=== PATIENT | female | born 1965 | race Caucasian/White ===

== ENCOUNTER → 2024-01-08 10:43 | Outpatient (REF) | payer MEDICARE, OTHER, SELFPAY | LOC: HWWDC 10:43 | PROVIDERS: ATTENDING PHYSICIAN Obstetrics & Gynecology; FAMILY PHYSICIAN Family Medicine | DX: Z12.31 Encounter for screening mammogram for malignant neoplasm of breast (principal) | CPT/HCPCS: 77063; 77067 ==

== ENCOUNTER 2024-02-06 13:48 | Emergency (ER) | payer MEDICARE, OTHER, SELFPAY ==
[2024-02-06 13:49] VITALS: BMI 30.2
--- NOTE | 2024-02-06 13:58 | ED.MUSCINJ ---
HPI-Injury
General
Chief Complaint: Fall
Source: patient
Exam Limitations: none
Time Seen by Provider: 02/06/24 13:50
Nursing documentation reviewed up to this point in time: agreed with
History of Present Illness-Injury
Is this injury a work related problem?: No
Is pt an associate of [facility]/[place]?: No
Initial Injury comments:
Patient to ED from [facility]. States she fell yesterdray, does not recall specifics. Unsure if she hit her head. Complains of headache, neck pain, left arm numbness, bilateral knee pain. Brought to ED by EMS for eval. Incident occurred
yesterday.
Past History
Past History
ED Past Medical History: GERD, HTN and Psychiatric (Bipolar disease)
Social History
Tobacco: Vaping
Alcohol: None
Drug: None
Review of Systems
Review of Systems
Allergies reviewed?: Yes
All Other Systems: ROS reviewed and negative except as documented in HPI and ROS
Constitutional: Reports no symptoms
EENT: Reports no symptoms
Respiratory: Reports no symptoms
Cardiac: Reports no symptoms
ABD/GI: Reports no symptoms
: Reports no symptoms
Musculoskeletal: Reports joint pain (bilateral ant knees) and neck pain
Skin: Reports no symptoms
Neurological: Reports weakness
Psychiatric: Reports no symptoms
Musculoskeletal Injury Exam
Musculoskeletal Injury Exam
Bilateral Anterior Knee:
Pain with Movement?: Mild
Tender to palpation?: Mild
Soft tissue swelling?: None
External deformity and angulation?: None
Joint effusion?: None
Contusion?: Mild
Hematoma-local bleeding into tissue?: None
Strain- Sprain- Tear (Connective tissue injury)?: None
Crepitus with movement?: No
Joint instability?: No
Malalignment/deformity?: No
Range of motion: Full
Distal skin color and temperature: normal-warm & good color
Capillary Refill: normal
Normal distal neurovascular exam?: Yes
Bilateral Posterior Neck:
Pain with Movement?: Mild
Tender to palpation?: Mild
Soft tissue swelling?: None
External deformity and angulation?: None
Joint effusion?: None
Contusion?: None
Hematoma-local bleeding into tissue?: None
Strain- Sprain- Tear (Connective tissue injury)?: Mild
Crepitus with movement?: No
Joint instability?: No
Malalignment/deformity?: No
Range of motion: Full
Distal skin color and temperature: normal-warm & good color
Normal distal neurovascular exam?: Yes
Phy Exam
General Physical Exam
General Presentation: well appearing and no apparent distress
General age: appears stated age
General Skin: warm and dry
General Habitus: normal
Cardiovascular Exam
Cardiovascular Exam: regular rate/rhythm and no edema
Gastrointestinal Exam
Gastrointestinal Exam: non tender and soft
Neurological Exam
Neurological Exam: alert, oriented x3, CN II-XII intact, no motor deficits, no sensory deficits and speech normal
Musculoskeletal Exam
Musculoskeletal Exam: full ROM, neuro vasc intact and other (No hip pain. Full ROM)
Skin Exam
Skin Exam: normal color, warm/dry and no rash
Psychiatric Exam
Psychiatric Exam: normal mood/affect
Injury Course
Orders/Labs/Results
Orders:
Orders
02/06/24 13:52
EKG [Electrocardiogram (*1)] Urgent
Reason for Study: Vertigo / Dizzy
EKG- Treatment ONCE
02/06/24 13:53
CBC/With Diff [Complete Blood Count/With Diff] Urgent
CMP [Comprehensive Metabolic Panel] Urgent
02/06/24 13:56
CT Head W/o Iv Contrast Urgent
Comment:
Reason For Exam: fall
Cervical Spine wo Contrast CT [CT Cervical Spine W/o Iv Contr] Urgent
Comment:
Reason For Exam: fall, left arm numbness
Knee, Left 4 or More Views [CR Knee - Left 4 Or More View*] Urgent
Comment:
Reason For Exam: fall
Knee, Right 4 or More Views [CR Knee- Right 4 Or More View*] Urgent
Comment:
Reason For Exam: fall
02/06/24 13:57
Hip, Left 2-3 Views [CR Hip - LT w/wo Pel 2-3 Vw*] Urgent
Comment:
Reason For Exam: fall
Include a pelvis x-ray?: Yes
02/06/24 15:40
Acetaminophen [Tylenol] 650 mg .ROUTE .STK-MED ONE
02/06/24 15:46
Acetaminophen [Tylenol] 650 mg PO NOW STA
Abnormal Lab Results
02/06/24
13:53
WBC 4.1 L 10^3/uL
(4.8-10.8)
RBC 4.19 L 10^6/uL
(4.20-5.40)
Monocytes % 13.2 H %
(1.7-9.3)
Sodium 134 L mmol/L
(135-145)
AST 52 H U/L
(14-36)
02/06/24 13:53
02/06/24 13:53
*Radiology
Radiology exam reviewed: radiology read reviewed
*Pulse Oximetry
Patient hypoxic: no
*Critical Care Note
Total Time (30-74mins, 75-104mins- exclusive of procedures): Not Applicable
ED Attending Note
-
Portions of this chart may have been created with voice recognition software.� Occasional wrong word or��sound alike� substitutions may have occurred due to the inherent limitations of voice recognition software.
Discharge Plan
Departure
Patient Disposition: Home (Routine Discharge)
Date of Disposition: 02/06/24
Time of Disposition: 15:50
Patient with high blood pressure during this ER visit?: No
Condition: Good
Covid-19: Not Applicable
Discharge Problem:
Contusion of multiple sites, Fall
Instructions: Contusion (DC), Preventing falls in adults, Using Cold for Pain
Prescriptions:
No Action
medroxyprogesterone 2.5 MG tablet
2.5 mg PO HS
lisinopril 20 MG tablet
20 mg PO DAILY
omeprazole 20 MG capsule,delayed release(DR/EC)
20 mg PO BID
fluticasone propionate 1 SPRAY spray,suspension
1 spray intranasal DAILY PRN (Reason: allergies)
metformin 500 MG tablet
500 mg PO DAILY
clonidine HCl 0.1 MG tablet
0.1 mg PO BID
lamotrigine [Lamictal] 200 MG tablet
200 mg PO DAILY
albuterol sulfate 1 PUFF HFA aerosol inhaler
1 puff inhalation R Q4HPRN PRN (Reason: sob)
duloxetine 30 MG capsule,delayed release(DR/EC)
30 mg PO DAILY
Patient Comments:
11/26/2020: Take w/ 60mg = 90mg
duloxetine 60 MG capsule,delayed release(DR/EC)
60 mg PO DAILY
Patient Comments:
11/26/2020: Take w/ 30mg = 90mg
budesonide-formoterol [Symbicort] 1 PUFF HFA aerosol inhaler
2 puff inhalation R DAILY
atorvastatin 20 MG tablet
20 mg PO QPM Qty: 30 0RF
gabapentin 100 MG capsule
200 mg PO BID Qty: 60 0RF
cariprazine [Vraylar] 1.5 MG capsule
1.5 mg PO HS Qty: 30 0RF
clonazepam 1 MG tablet
1 mg PO BIDPRN PRN (Reason: anxiety) 0RF
Referrals:
UNKNOWN - PT DOES,NOT KNOW [Family Provider] -
Activity Restrictions/Additional Instructions:
Follow up with your family doctor.
Interventions
Interventions:
*Risk Screen - Suicide Last Done: 02/06/24 13:49
*General Assessment Last Done: 02/06/24 13:49
*Neglect/Abuse Screening Last Done: 02/06/24 13:49
Discharge Date and Time
Print Language: SYRIAN
[2024-02-06 14:01] LABS: % Basophils 1.2 % (0-2); % Eosinophils 3.9 % (0-6); % Immature Granulocytes 0.2 % (0-0.5); % Lymphocytes 30.2 % (20.5-51.1); % Monocytes 13.2 % (1.7-9.3); % Neutrophils 51.3 % (42.2-75.2); Absolute Basophils 0.1 10^3/uL (0-0.2); Absolute Eosinophils 0.2 10^3/uL (0-0.7); Absolute Lymphocytes 1.2 10^3/uL (1.2-3.4); Absolute Monocytes 0.5 10^3/uL (0.1-0.6); Absolute Neutrophils 2.1 10^3/uL (1.4-6.5); Hematocrit 38.2 % (37.0-47.0); Mean Corpuscular Volume 91.2 fL (81.0-99.0); Mean Platelet Volume 9.7 fL (7.4-10.4); Nucleated Red Blood Cells % 0 %; Platelet Count 263 10^3/uL (130-400); Red Blood Cell Count 4.19 10^6/uL (4.20-5.40); Red Cell Dist. Width 12.5 % (11.5-14.5); White Blood Cell Count 4.1 10^3/uL (4.8-10.8)
[2024-02-06 14:19] LABS: ALT (SGPT) 20 U/L (0-35); AST (SGOT) 52 U/L (14-36); Albumin 4.3 g/dl (3.5-5.0); Alkaline Phosphatase 68 U/L (38-126); Blood Urea Nitrogen 15 mg/dl (7-17); Calcium 9.9 mg/dl (8.4-10.2); Carbon Dioxide 28 mmol/L (22-30); Chloride 98 mmol/L (98-107); Estimated Creatinine Clearance 74 ml/min; Glucose 88 mg/dl (70-99); Potassium 4.5 mmol/L (3.5-5.1); Sodium 134 mmol/L (135-145); Total Bilirubin 0.5 mg/dl (0.2-1.3); Total Protein 6.6 g/dl (6.3-8.2); eGFR > 60.00
[2024-02-06] MEDS: TYLENOL 650 MG PO (15:47)
== END 2024-02-06 16:22 | disposition home or self-care (01) ==
LOC: EMR 13:48
PROVIDERS: Nurse Practitioner; EMERGENCY PHYSICIAN Emergency Medicine
DX: S80.02XA Contusion of left knee, initial encounter (principal); S80.01XA Contusion of right knee, initial encounter; S13.9XXA Sprain of joints and ligaments of unspecified parts of neck, initial encounter; R20.0 Anesthesia of skin; R51.9 Headache, unspecified; M54.9 Dorsalgia, unspecified; R53.1 Weakness; W19.XXXA Unspecified fall, initial encounter; F31.9 Bipolar disorder, unspecified; I10 Essential (primary) hypertension; K21.9 Gastro-esophageal reflux disease without esophagitis; E11.9 Type 2 diabetes mellitus without complications; F32.A Depression, unspecified; F17.290 Nicotine dependence, other tobacco product, uncomplicated; Z88.8 Allergy status to other drugs, medicaments and biological substances; Z91.048 Other nonmedicinal substance allergy status
CPT/HCPCS: 99285; 70450; 72125; 73502; 73564; 80053; 85025; 93005

== ENCOUNTER → 2024-03-11 11:28 | Outpatient (REF) | payer MEDICARE, OTHER, SELFPAY | LOC: HWRAD 11:28 | PROVIDERS: ATTENDING PHYSICIAN Internal Medicine Critical Care Medicine; FAMILY PHYSICIAN Family Medicine | DX: Z87.891 Personal history of nicotine dependence (principal) | CPT/HCPCS: 71271 ==

== ENCOUNTER 2024-05-08 10:03 | Emergency (ER) | payer MEDICARE, OTHER, SELFPAY ==
[2024-05-08 10:17] VITALS: BP 100/63
[2024-05-08 10:56] LABS: % Basophils 0.4 % (0-2); % Eosinophils 2.4 % (0-6); % Immature Granulocytes 0.2 % (0-0.5); % Lymphocytes 31.8 % (20.5-51.1); % Monocytes 9.5 % (1.7-9.3); % Neutrophils 55.7 % (42.2-75.2); Absolute Eosinophils 0.1 10^3/uL (0-0.7); Absolute Lymphocytes 1.6 10^3/uL (1.2-3.4); Absolute Monocytes 0.5 10^3/uL (0.1-0.6); Absolute Neutrophils 2.8 10^3/uL (1.4-6.5); Hematocrit 43.3 % (37.0-47.0); Hemoglobin 14.3 g/dL (12.0-16.0); Mean Corpuscular Volume 93.9 fL (81.0-99.0); Mean Platelet Volume 9.7 fL (7.4-10.4); Nucleated Red Blood Cells % 0 %; Platelet Count 317 10^3/uL (130-400); Red Blood Cell Count 4.61 10^6/uL (4.20-5.40); Red Cell Dist. Width 12.7 % (11.5-14.5); White Blood Cell Count 5.1 10^3/uL (4.8-10.8)
--- NOTE | 2024-05-08 11:06 | ED.GENMED ---
History of Present Illness
<PAT Pruett Last Filed: 05/08/24 16:57>
General
Chief Complaint: Abdominal Symptoms
Source: patient and records
Exam Limitations: none
Time Seen by Provider: 05/08/24 11:05
Nursing documentation reviewed up to this point in time: agreed with
History of Present Illness
History of Present Illness:
58-year-old female with past medical history of GERD, diabetes on metformin, hypertension, anxiety presents emergency department today with right upper quadrant abdominal pain for the past few weeks. Patient reports that she has had this problem
ongoing recently and states that the pain comes and goes but noted that the past few days, the pain has become more severe and stabbing in quality. Patient states that the pain is most severe after meals. She reports that the pain is worse with
movement. She also reports that she is not eating much due to the pain and notes nausea as well but no vomiting. She denies any constipation or diarrhea. She denies any history of abdominal surgeries. She denies any recent travel. Her primary
doctor ordered an ultrasound outpatient but she states that the pain became so uncomfortable that she reported to the emergency department. Patient denies any radiation of the pain to the back. Patient denies shortness of breath. Patient denies
dysuria or hematuria. Patient states that the pain relieves most when lying supine.
Past History
<PAT Pruett Last Filed: 05/08/24 16:57>
Past History
ED Past Medical History: GERD, HTN and Psychiatric (Bipolar disease)
Social History
Tobacco: Vaping
Alcohol: None
Drug: None
Review of Systems
<PAT Pruett Last Filed: 05/08/24 16:57>
Review of Systems
All Other Systems: ROS reviewed and negative except as documented in HPI and ROS
Phy Exam
<PAT Pruett Last Filed: 05/08/24 16:57>
Physical Exam
Physical Exam:
General: Patient is well appearing and in no acute distress; non-toxic
Skin: Warm and dry, no rashes or lesions
Head: Normocephalic, atraumatic
Eyes: Sclera non-icteric. EOMs intact. PERRLA.
Cardiac: Regular rate and rhythm, no murmurs
Pulm: Normal respiratory effort, no wheezes, rales, rhonchi
Abdomen: Right upper quadrant tenderness palpation with no guarding, no rebound tenderness.
Neuro: CN II-XII intact, no focal neurologic deficits.
Psychiatric: Appropriate mood and affect.
Course
<Ashley Duran PA-C - Last Filed: 05/08/24 16:57>
Orders/Labs/Results
Orders:
Orders
05/08/24 10:40
Complete Blood Count/With Diff Urgent
Comprehensive Metabolic Panel Urgent
Lipase Urgent
05/08/24 11:21
Add On- LAB Urgent
Tests Added?: lipase
IV Insert/Care/Rem.- Treatment PRN
Ketorolac [Toradol] 15 mg IV NOW STA
Ondansetron Injectable [Zofran] 4 mg IV NOW STA
US Abdomen Complete/Upper Urgent
Reason For Exam: right upper quadrant pain
05/08/24 11:25
0.9% Sodium Chloride 1000 ml [Nss] 1,000 ml IV BOLUS
05/08/24 13:47
CT Abd/pelvis W Iv Cont Urgent
Comment:
Reason For Exam: diffuse epigastrin pain
05/08/24 14:25
0.9% Sodium Chloride 500 ml [Nss] 500 ml IV BOLUS
05/08/24 15:24
Orthostatic VS- Treatment ONCE
Abnormal Lab Results
05/08/24
10:40
Monocytes % 9.5 H %
(1.7-9.3)
Glucose 112 H mg/dl
(70-99)
05/08/24 10:40
05/08/24 10:40
Vital Signs
Initial and Last Documented VS:
Initial Vital Signs
Temp Pulse Resp BP Pulse Ox
98.2 F 99 16 100/63 98
05/08/24 10:17 05/08/24 10:17 05/08/24 10:17 05/08/24 10:17 05/08/24 10:17
Last Documented Vital Signs
Temp Pulse Resp BP Pulse Ox
97.4 F 85 16 93/55 98
05/08/24 13:03 05/08/24 13:15 05/08/24 13:03 05/08/24 13:15 05/08/24 10:17
Daryalt;Chun Henderson, - Last Filed: 05/08/24 13:52>
Orders/Labs/Results
Orders:
Orders
05/08/24 10:40
Complete Blood Count/With Diff Urgent
Comprehensive Metabolic Panel Urgent
Lipase Urgent
05/08/24 11:21
Add On- LAB Urgent
Tests Added?: lipase
IV Insert/Care/Rem.- Treatment PRN
Ketorolac [Toradol] 15 mg IV NOW STA
Ondansetron Injectable [Zofran] 4 mg IV NOW STA
US Abdomen Complete/Upper Urgent
Reason For Exam: right upper quadrant pain
05/08/24 11:25
0.9% Sodium Chloride 1000 ml [Nss] 1,000 ml IV BOLUS
05/08/24 13:47
CT Abd/pelvis W Iv Cont Urgent
Comment:
Reason For Exam: diffuse epigastrin pain
05/08/24 14:25
0.9% Sodium Chloride 500 ml [Nss] 500 ml IV BOLUS
05/08/24 15:24
Orthostatic VS- Treatment ONCE
Abnormal Lab Results
05/08/24
10:40
Monocytes % 9.5 H %
(1.7-9.3)
Glucose 112 H mg/dl
(70-99)
05/08/24 10:40
05/08/24 10:40
Vital Signs
Initial and Last Documented VS:
Initial Vital Signs
Temp Pulse Resp BP Pulse Ox
98.2 F 99 16 100/63 98
05/08/24 10:17 05/08/24 10:17 05/08/24 10:17 05/08/24 10:17 05/08/24 10:17
Last Documented Vital Signs
Temp Pulse Resp BP Pulse Ox
97.4 F 85 16 93/55 98
05/08/24 13:03 05/08/24 13:15 05/08/24 13:03 05/08/24 13:15 05/08/24 10:17
Daryalt;Ashley Duran PA-C - Last Filed: 05/08/24 16:57>
MDM/Problems Addressed
Differential Diagnosis Includes:
Differentials include cholecystitis, biliary colic, pancreatitis, gastroenteritis
MDM/Problems Addressed:
58-year-old female with past medical history of hypertension, GERD, anxiety, bipolar disorder, diabetes presents emergency department today with concerns of on and off abdominal pain for the past few weeks. Patient had an ultrasound of her abdomen
scheduled as an outpatient however patient states that today she had episode of more severe pain which caused her to present to the emergency department today. On physical exam, she is well-appearing, her tenderness he was a more localized to the
right upper quadrant. She feels as though her pain is worse after eating. Her CBC and CMP are unremarkable. Patient is afebrile. Her ultrasound of the abdomen is negative for gallstones, gallbladder wall thickening, or pericholecystic fluid.
Patient's pain did relieve completely with Toradol. Considering patient's persistent pain for the past few months, and severe episode of pain she had earlier, she was sent for CAT scan which demonstrated a large fibroid on the right side of the
uterus as well as moderate circumferential thickening of the distal esophagus. Discussed these findings with patient. Patient knows about her fibroid, I doubt this is responsible for her symptoms today. Considering patient has a history of GERD,
discussed how these findings might represent esophagitis. I discussed that an upper endoscopy would be a good next step in evaluation of her symptoms. Patient states that she will continue to take pantoprazole and will have her sister call her
oven worker to schedule an appointment to get endoscopy. Patient stable for discharge at this point for outpatient follow-up. Discussed return precautions.
Chronic conditions affecting care:
HTN. GERD, diabetes, anxiety, depression
<Ashley Duran PA-C - Last Filed: 05/08/24 16:57>
*Pulse Oximetry
Patient hypoxic: no
*Critical Care Note
Total Time (30-74mins, 75-104mins- exclusive of procedures): Not Applicable
Data Reviewed
Review of Other/Old Records Reveals: Records (reviewed ER physician documentation from 02/06/24) and Discharge Summary (Reviewed discharge summary from 11/29/2020, patient was seen for altered mental status, patient found head acute kidney injury and
malaise of unknown etiology)
Source: patient and records
Prescriptions/Medications Considered But Not Given:
n/a
Further Testing Considered But Not Given:
n/a
<Ashley Duran PA-C - Last Filed: 05/08/24 16:57>
Update Note
Update Note:
1:10 pm-- BP noted to be 82/55, patient received around 200 ml of fluids, will continue to transfuse fluids and reassess. Patient does not meet SIRS criteria at this time. Patient notes her pain significantly improved with Toradol.
Prior to discharge, vitals rechecked, patient's blood pressure sitting 135/95 and standing 121/89 prior to discharge.
ED Attending Note
<Ashley Duran PA-C - Last Filed: 05/08/24 16:57>
-
Portions of this chart may have been created with voice recognition software.� Occasional wrong word or��sound alike� substitutions may have occurred due to the inherent limitations of voice recognition software.
<Chun JeffreyEddi Henderson DO - Last Filed: 05/08/24 13:52>
ED Attending Note
Patient seen and examined by attending physician: Yes
I performed a history and physical exam of patient and discussed management with resident, I reviewed resident's note and agree with documented findings and plan of care.: Yes
ED Attending Note:
58-year-old female presents complaining of abdominal pain. Patient is complaining of pain in the upper abdomen. Pain comes and goes in waves. Has been occurring for the past several weeks. Pain seems to occur after eating meals. No fever. No
urinary symptoms.
General: Awake, Alert, Oriented X3. No acute distress.
Vitals: unremarkable
Head: Atraumatic
Eyes: Pupils equal, EOMI
Throat: Airway intact, no exudates
Neck: Trachea midline
Lungs: Clear and equal b/l
Heart: Regular rate, no murmurs
Abd: Soft, mild periumbilical pain without right upper quadrant pain, No pulsatile mass
Neuro: Nonfocal
Skin: Warm, dry, no rash
Extremities: pulses equal b/l, no edema
Discharge Plan
Departure
Patient Disposition: Home (Routine Discharge)
Date of Disposition: 05/08/24
Time of Disposition: 15:46
Patient with high blood pressure during this ER visit?: Yes
Condition: Good
Discharge Problem:
Abdominal pain, Esophagitis
Instructions: Esophagitis, Abdominal Pain, BLOOD PRESSURE
Prescriptions:
No Action
medroxyprogesterone 2.5 MG tablet
2.5 mg PO HS
lisinopril 20 MG tablet
20 mg PO DAILY
omeprazole 20 MG capsule,delayed release(DR/EC)
20 mg PO BID
fluticasone propionate 1 SPRAY spray,suspension
1 spray intranasal DAILY PRN (Reason: allergies)
metformin 500 MG tablet
500 mg PO DAILY
clonidine HCl 0.1 MG tablet
0.1 mg PO BID
lamotrigine [Lamictal] 200 MG tablet
200 mg PO DAILY
albuterol sulfate 1 PUFF HFA aerosol inhaler
1 puff inhalation R Q4HPRN PRN (Reason: sob)
duloxetine 30 MG capsule,delayed release(DR/EC)
30 mg PO DAILY
Patient Comments:
11/26/2020: Take w/ 60mg = 90mg
duloxetine 60 MG capsule,delayed release(DR/EC)
60 mg PO DAILY
Patient Comments:
11/26/2020: Take w/ 30mg = 90mg
budesonide-formoterol [Symbicort] 1 PUFF HFA aerosol inhaler
2 puff inhalation R DAILY
atorvastatin 20 MG tablet
20 mg PO QPM Qty: 30 0RF
gabapentin 100 MG capsule
200 mg PO BID Qty: 60 0RF
cariprazine [Vraylar] 1.5 MG capsule
1.5 mg PO HS Qty: 30 0RF
clonazepam 1 MG tablet
1 mg PO BIDPRN PRN (Reason: anxiety) 0RF
Referrals:
Shailesh Jean MD [Family Provider] -
Activity Restrictions/Additional Instructions:
Please continue taking your omeprazole as directed.
Should you have breakthrough pain/discomfort, you can take 400 mg every 4-6 hours as needed. Please do not exceed 1200 mg/day.
Please follow up with your primary care provider in one week.
Please return the emergency department should you experience intractable nausea or vomiting, persistent abdominal pain, fevers or chills, burning with urination, blood in your urine, your signs or symptoms concerning to you.
Interventions
Interventions:
*Risk Screen - Suicide Last Done: 05/08/24 10:20
*General Assessment Last Done: 05/08/24 11:08
*Neglect/Abuse Screening Last Done: 05/08/24 10:20
ED- Fall Risk Assessment Last Done: 05/08/24 11:07
*ED COVID-19 Vaccine History Last Done: 05/08/24 11:08
*Nursing Disposition Last Done: 05/08/24 16:03
MX-Slgqin-Yddflkdoes Assessment Last Done: 05/08/24 11:09
Discharge Date and Time
Discharge Date/Time: 05/08/24 16:05
Print Language: KOREAN
[2024-05-08 11:09] VITALS: BMI 28.1
[2024-05-08 11:12] LABS: ALT (SGPT) 16 U/L (0-35); AST (SGOT) 24 U/L (14-36); Albumin 4.5 g/dl (3.5-5.0); Alkaline Phosphatase 40 U/L (38-126); Blood Urea Nitrogen 12 mg/dl (7-17); Calcium 9.9 mg/dl (8.4-10.2); Carbon Dioxide 25 mmol/L (22-30); Chloride 104 mmol/L (98-107); Estimated Creatinine Clearance 65 ml/min; Glucose 112 mg/dl (70-99); Lipase 67 U/L (23-300); Potassium 4.2 mmol/L (3.5-5.1); Sodium 143 mmol/L (135-145); Total Bilirubin 0.3 mg/dl (0.2-1.3); Total Protein 6.8 g/dl (6.3-8.2); eGFR > 60.00
[2024-05-08] MEDS: ZOFRAN 4 MG IV (11:42)
[2024-05-08] MEDS: NSS 1000 IV (11:42)
[2024-05-08] MEDS: TORADOL 15 MG IV (11:42)
[2024-05-08 13:03] VITALS: BP 82/55
[2024-05-08 13:15] VITALS: BP 93/55
[2024-05-08] MEDS: NSS 500 IV (14:42)
[2024-05-08 15:42] VITALS: BP 121/89; BP 135/95; PULSE 92; PULSE 93
== END 2024-05-08 16:05 | disposition home or self-care (01) ==
LOC: EMR 10:03
PROVIDERS: EMERGENCY PHYSICIAN Emergency Medicine; FAMILY PHYSICIAN Family Medicine
DX: K21.00 Gastro-esophageal reflux disease with esophagitis, without bleeding (principal); I10 Essential (primary) hypertension; F41.9 Anxiety disorder, unspecified; E11.9 Type 2 diabetes mellitus without complications; F17.290 Nicotine dependence, other tobacco product, uncomplicated
CPT/HCPCS: 99285; 96374; 96375; 96361 ×2; 74177; 76700; 80053; 83690; 85025; Q9967

== ENCOUNTER 2024-05-29 20:09 | Observation (INO) | payer MEDICARE, OTHER, SELFPAY ==
[2024-05-29 15:18] VITALS: BMI 26.9
[2024-05-29 15:23] VITALS: BP 131/93
[2024-05-29 15:57] LABS: % Basophils 1.2 % (0-2); % Eosinophils 1.5 % (0-6); % Immature Granulocytes 0.2 % (0-0.5); % Lymphocytes 22.5 % (20.5-51.1); % Monocytes 8.2 % (1.7-9.3); % Neutrophils 66.4 % (42.2-75.2); Absolute Basophils 0.1 10^3/uL (0-0.2); Absolute Eosinophils 0.1 10^3/uL (0-0.7); Absolute Lymphocytes 1.3 10^3/uL (1.2-3.4); Absolute Monocytes 0.5 10^3/uL (0.1-0.6); Hematocrit 40.2 % (37.0-47.0); Hemoglobin 13.3 g/dL (12.0-16.0); Mean Corp Hgb Conc. 33.1 g/dL (33.0-37.0); Mean Corpuscular Hgb 29.6 pg (27.0-31.0); Mean Corpuscular Volume 89.3 fL (81.0-99.0); Mean Platelet Volume 9.4 fL (7.4-10.4); Nucleated Red Blood Cells % 0 %; Platelet Count 316 10^3/uL (130-400); Red Cell Dist. Width 11.9 % (11.5-14.5)
[2024-05-29 16:04] LABS: Lactic Acid 1.2 mmol/L (0.7-2.0)
[2024-05-29 16:12] LABS: ALT (SGPT) 13 U/L (0-35); AST (SGOT) 22 U/L (14-36); Albumin 4.5 g/dl (3.5-5.0); Alkaline Phosphatase 53 U/L (38-126); Blood Urea Nitrogen 8 mg/dl (7-17); Calcium 9.7 mg/dl (8.4-10.2); Carbon Dioxide 26 mmol/L (22-30); Chloride 96 mmol/L (98-107); Glucose 99 mg/dl (70-99); Potassium 4.4 mmol/L (3.5-5.1); Sodium 138 mmol/L (135-145); Total Bilirubin 0.5 mg/dl (0.2-1.3); Total Protein 6.9 g/dl (6.3-8.2); eGFR > 60.00
[2024-05-29 18:34] LABS: Lipase 46 U/L (23-300)
--- NOTE | 2024-05-29 18:36 | ED.GENMED ---
History of Present Illness
General
Chief Complaint: Abdominal Pain
Source: patient and family (sister)
Exam Limitations: none
Time Seen by Provider: 05/29/24 17:33
Nursing documentation reviewed up to this point in time: agreed with
History of Present Illness
History of Present Illness:
Patient to ED with complaint of worsening upper abdominal pain. SHe was seen in ED 3 weeks ago for same. Had Ct and US during that visit without concerning findings. SHe was instructed to followup with GI. She reports seeing Dr. Guido today
and was advised to come to ED for admission/further work-up. Reports worseing pain, loss off appetite. Sister states patient is eating very little and has lost a lot of weight. Denies fever/chills, vomiting, diarrhea.
Past History
Past History
ED Past Medical History: GERD, HTN, NIDDM and Psychiatric (Bipolar disease)
Social History
Tobacco: Vaping
Alcohol: None
Drug: None
Review of Systems
Review of Systems
Allergies reviewed?: Yes
All Other Systems: ROS reviewed and negative except as documented in HPI and ROS
Constitutional: Reports fatigue
EENT: Reports no symptoms
Respiratory: Reports no symptoms
Cardiac: Reports no symptoms
ABD/GI: Reports abdominal pain, nausea and anorexia
: Reports no symptoms
Musculoskeletal: Reports no symptoms
Skin: Reports no symptoms
Neurological: Reports no symptoms
Psychiatric: Reports no symptoms
Phy Exam
General Physical Exam
General Presentation: mild distress
General age: appears stated age
General Skin: warm and dry
General Habitus: normal
General Mental: alert
General Hydration: appears well hydrated
Cardiovascular Exam
Cardiovascular Exam: regular rate/rhythm and no edema
Pulmonary Exam
Pulmonary Exam: lungs clear and no respiratory distress
Gastrointestinal Exam
Gastrointestinal Exam: normal bowel sounds, soft, no organomegaly, no pulsatile mass and non distended
Palpation: generalized: Moderate tenderness
Musculoskeletal Exam
Musculoskeletal Exam: full ROM and neuro vasc intact
Skin Exam
Skin Exam: normal color, warm/dry and no rash
Psychiatric Exam
Psychiatric Exam: normal mood/affect
Course
Orders/Labs/Results
Orders:
Orders
05/29/24 Dinner
1800 calorie (15 carb) Diabetic
At Your Request: Full Participation
05/29/24 15:41
Complete Blood Count/With Diff Urgent
Comprehensive Metabolic Panel Urgent
Lactic Acid Urgent
Lipase Urgent
Comment: ADD ON
05/29/24 18:10
Iohexol [Omnipaque] See Protocol PO NOW STA
05/29/24 18:14
0.9% Sodium Chloride 1000 ml [Nss] 1,000 ml IV BOLUS
05/29/24 18:29
Ketorolac [Toradol] 15 mg IV NOW STA
05/29/24 18:43
Urinalysis Reflex To Culture Urgent
Date Specimen was Collected: 05/29/24
Time Specimen was Collected: 18:43
05/29/24 18:48
CT Head W/o Iv Contrast Urgent
Comment:
Reason For Exam: change in mental status
05/29/24 19:48
Albuterol [ProAIR HFA INHALER] 1 puff INH R Q4HPRN PRN
Clonazepam [Klonopin] 1 mg PO DAILYPRN PRN
05/29/24 19:51
Admit/Transfer Patient As Directed
Co-Sign Provider:
Level of Care: Observation services
Assign to:: Medical/Surgical
Physician / Group: Hospitalist
Diagnosis: abdomina pain
PRN Pain Medication Management As Directed
May give lesser potent ordered pain med per pt: Yes
preference::
Protocol:: Medication orders for pain may be administered in a
manner that supports deferring to patient preference
when the pt is:
- Requesting an ordered lesser potent pain medication.
Least to most potent pain medications are defined
as: acetaminophen < NSAID < tramadol < opioids
(morphine, oxycodone, hydromorphone).
- Requesting a lesser dose of the same medication IF
ORDERED.
- Requesting a less intrusive route of administration
if both routes are prescribed by the provider (PO <
IV).
05/29/24 19:52
Code Status As Directed
Resuscitation Status: Full Code
05/29/24 20:00
Clonidine [Catapres] 0.1 mg PO BID
HydrOXYZINE [Atarax] 25 mg PO BID
Lisinopril [Zestril] 20 mg PO BID
METFORMIN HCl [Glucophage] 500 mg PO BID AT 0800,1700
Pantoprazole [Protonix] 40 mg PO BID
05/29/24 21:04
Acetaminophen [Tylenol] 650 mg PO Q4HPRN PRN
Bisacodyl [Dulcolax] 10 mg RECTAL [id number] PRN
Docusate W/Senna [Senokot-S] 1 tablet PO BIDPRN PRN
Lactated Ringers [Lr] 1,000 ml IV 75 mls/hr
Mag Hydrox/Al Hydrox/Simeth [Maalox] 30 ml PO Q6HPRN PRN
Ondansetron Injectable [Zofran] 4 mg IV Q6HPRN PRN
Polyethylene Glycol Powder [Miralax] 17 grams PO DAILYPRN PRN
05/29/24 21:04
Activity As Directed
Activity Level: With Assistance
Vital Signs As Directed
Frequency: Per unit guidelines
Cpap [RESP] Routine
Patient to use own unit?: No
Set Pressure (cm H2O): 5
DX Deep Vein Thrombosis Video Routine
05/29/24 22:00
Gabapentin [Neurontin] 1,200 mg PO HS
Trazodone [Desyrel] 100 mg PO HS
atogepant [Qulipta] See Dose Instructions PO HS
05/30/24 08:00
Amlodipine [Norvasc] 5 mg PO DAILY
Gabapentin [Neurontin] 600 mg PO DAILY
Lamotrigine [Lamictal] 200 mg PO DAILY
Loratadine [Claritin] 10 mg PO DAILY
Medroxyprogesterone [Provera] 2.5 mg PO DAILY
estradiol 0.5 mg PO DAILY
lumateperone [Caplyta] 42 mg PO DAILY
05/30/24 18:00
Enoxaparin Sodium [Lovenox] 40 mg SC QPM
Abnormal Lab Results
05/29/24
15:41
Chloride 96 L mmol/L
(98-107)
05/29/24 15:41
05/29/24 15:41
Vital Signs
Initial and Last Documented VS:
Initial Vital Signs
Temp Pulse Resp BP Pulse Ox
98.1 F 96 20 131/93 97
05/29/24 15:23 05/29/24 15:23 05/29/24 15:23 05/29/24 15:23 05/29/24 15:23
Last Documented Vital Signs
Temp Pulse Resp BP Pulse Ox
98.3 F 90 14 137/92 96
05/29/24 21:05 05/29/24 22:24 05/29/24 21:19 05/29/24 22:24 05/29/24 21:19
MDM/Problems Addressed
Differential Diagnosis Includes:
Patient to ED with complaint of wrosening abdominal pain. Pain started approx 1.5 mos ago. Seen in ED 3weeks ago for same. Imaging completed without identifying cause of pain. SHe was seen by Dr. Guido today and sent to ED for admission.
Requesting Abdominal MRI with contrast. Will initiate IVF and anti-emetics in ED, admit to hospitalist service.
*Critical Care Note
Total Time (30-74mins, 75-104mins- exclusive of procedures): Not Applicable
ED Attending Note
-
Portions of this chart may have been created with voice recognition software.� Occasional wrong word or��sound alike� substitutions may have occurred due to the inherent limitations of voice recognition software.
Discharge Plan
Departure
Patient Disposition: Admit
Date of Disposition: 05/29/24
Time of Disposition: 18:45
Presentation/result/management discussed w/ accepting MD/DO: Hospitalist
Patient with high blood pressure during this ER visit?: Yes
Condition: Fair
Covid-19: Not Applicable
Discharge Problem:
Abdominal pain
Interventions
Interventions:
*Risk Screen - Suicide Last Done: 05/29/24 19:45
*General Assessment Last Done: 05/29/24 15:23
*Neglect/Abuse Screening Last Done: 05/29/24 19:45
*Nursing Disposition Last Done: 05/29/24 21:18
JQ-Lvxzwg-Ilfvsknvlm Assessment Last Done: 05/29/24 19:46
Discharge Date and Time
Discharge Date/Time: 05/29/24 21:10
[2024-05-29] MEDS: NSS 1000 IV (18:37)
[2024-05-29] MEDS: TORADOL 15 MG IV (18:39)
[2024-05-29 18:53] LABS: Urine Albumin Negative (Neg - Trace); Urine Bilirubin Negative (Negative); Urine Character Clear (Clear); Urine Color Yellow; Urine Glucose Negative (Negative); Urine Ketone Negative (Negative); Urine Leukocyte Negative (Negative); Urine Nitrite Negative (Negative); Urine Occult Blood Negative (Negative); Urine Specific Gravity 1.005 (<1.030); Urine Urobilinogen Negative (Neg - 1+)
--- NOTE | 2024-05-29 19:35 | HPS.HSE ---
Family Physician
-
Family Physician: Shailesh Jean
Chief Complaint
-
Subacute abdominal pain
History of Present Illness
This is a 58-year-old female with past medical history significant for migraine headaches, hypertension, GERD, prediabetes, RJ on CPAP, bipolar presenting to the emergency department from gastroenterology clinic for intractable abdominal pain.
Patient has been complaining of abdominal pain for the last few weeks. She states it is worsened over the last 3 weeks that she was seen in the emergency department 3 weeks ago for this. She reports mostly periumbilical abdominal pain that
radiates into the epigastric region and sometimes radiates into her chest. Is associated with nausea. She denies any vomiting. She denies any diarrhea. She denies any melena. She has not had any hematochezia. Patient denies any alcohol use.
She denies any history of gallstones. She denies any abdominal swelling or bloating. Patient denies any rash. She had a colonoscopy over the last 10 years and she is due for another one next year. She reports no abnormalities on those results.
Patient denies any prior intra-abdominal surgery. She states that occasionally the pain is worse with after eating. She denies food fear. She has no history of peripheral vascular disease, mi or cva.
3 weeks ago she was in the ED and had extensive workup including labs, CT and ultrasound which were nondiagnostic. She was to follow-up with GI was sent to the ED today for additional imaging studies.
Family reports that patient has been eating less, and she has been more fatigued and sleepy. Patient states he is unable to sleep at night due to pain.
In the ED she was afebrile, she was normotensive with a blood pressure 130/90, pulse of 96. CBC again was completely within normal limits. Electrolytes BUN/creatinine were also completely normal. Lipase LFTs UA were all within normal limits.
Medical History
Past Medical History
Past Medical History: Reports HTN, NIDDM and Psychiatric (Bipolar)
Additional Past Medical History:
RJ on CPAP
Migraine headaches
Anxiety
Past Surgical History: Reports None
Social History
Tobacco: Non-smoker
Alcohol: None
Drug: None
Personal: Single
Living: Alone
Family History
Family History: Not pertinent
Allergies / Home Medications
Allergies reflects when Allergies were last updated in [facility].
Home Medications with original date entered in [facility]
Allergy/Medication List:
Allergies
Allergy/AdvReac Type Severity Reaction Status Date / Time
lurasidone [From Latuda] Allergy Mild 'acathesia' Verified 05/29/24 15:23
bupropion [From Wellbutrin] Allergy Unknown Verified 05/29/24 15:23
cats,hayfever Allergy sneezing,itchy Uncoded 05/29/24 15:23
watery eyes
steriods Allergy anxiety Uncoded 05/29/24 15:23
Home Medications
lisinopril 20 mg tablet 20 mg PO BID Blood pressure 04/14/17
medroxyprogesterone 2.5 mg tablet 2.5 mg PO DAILY Hormonal agent 04/14/17
clonidine HCl 0.1 mg tablet 0.1 mg PO BID Blood pressure 11/26/20
lamotrigine 200 mg tablet (Lamictal) 200 mg PO DAILY mental health 11/26/20
metformin 500 mg tablet 500 mg PO BID Diabetes 11/26/20
albuterol sulfate 90 mcg/actuation aerosol inhaler 1 puff inhalation R Q4HPRN PRN sob 05/29/24
amlodipine 5 mg tablet 5 mg PO DAILY 05/29/24
atogepant 60 mg tablet (Qulipta) 60 mg PO HS 05/29/24
azelastine 137 mcg (0.1 %) nasal spray 2 spray intranasal DAILY 05/29/24
clonazepam 1 mg tablet 1 mg PO DAILYPRN PRN anxiety 05/29/24
estradiol 0.5 mg tablet 0.5 mg PO DAILY 05/29/24
fluticasone propionate 50 mcg/actuation nasal spray,suspension 1 spray intranasal DAILY 05/29/24
gabapentin 600 mg tablet 1,200 mg PO HS 05/29/24
gabapentin 600 mg tablet 600 mg PO DAILY 05/29/24
hydroxyzine pamoate 25 mg capsule 25 mg PO BID 05/29/24
levocetirizine 5 mg tablet 5 mg PO DAILY 05/29/24
loratadine 10 mg tablet (Claritin) 10 mg PO DAILY 05/29/24
lumateperone 42 mg capsule (Caplyta) 42 mg PO DAILY 05/29/24
ondansetron HCl 8 mg tablet 8 mg PO DAILYPRN PRN nausea 05/29/24
pantoprazole 40 mg tablet,delayed release 40 mg PO BID 05/29/24
tizanidine 4 mg tablet 4 mg PO TIDPRN PRN muscle spasms 05/29/24
trazodone 100 mg tablet 100 mg PO HS 05/29/24
Review of Systems
-
Constitutional: Reports Weight Loss, Fatigue and Sleep Disturbance
EENT: Reports No Symptoms
Respiratory: Reports No Symptoms
Cardiac: Reports No Symptoms
Abdomen/GI: Reports Abdominal Pain and Nausea
: Reports No Symptoms
Musculoskeletal: Reports No Symptoms
Skin: Reports No Symptoms
Neurological: Reports No Symptoms
Endocrine: Reports No Symptoms
Hematologic/Lymphatic: Reports No Symptoms
Psych: Reports No Symptoms
Physical Exam
Vital Signs
Vital Signs
Temp Pulse Resp BP Pulse Ox
98.1 F 96 20 131/93 97
05/29/24 15:23 05/29/24 15:23 05/29/24 15:23 05/29/24 15:23 05/29/24 15:23
Physical Exam
General: Well Developed, Well Nourished, No Apparent Distress and Comfortable
HEENT: NormoCephalic, Anicteric, Moist mucous membranes and Atraumatic
Respiratory: Clear
Cardiac: S1/S2 and Regular Rhythm
GI: Soft, Non Distended, Normal Bowel Sounds, Flat and No Hepatosplenomegaly
Rectal: Deferred by Provider
Genito-urinary: No costovertebral tender
Musculoskeletal: No Clubbing, No Cyanosis and No Edema
Skin: Warm
Neuro: AO x 3
Hematologic/Lymphatic: No Lymphadenopathy
Psych: Calm
Laboratory Results
-
05/29/24 15:41
05/29/24 15:41
Laboratory Results
Lactic Acid 1.2 mmol/L (0.7-2.0) 05/29/24 15:41
Total Bilirubin 0.5 mg/dl (0.2-1.3) 05/29/24 15:41
AST 22 U/L (14-36) 05/29/24 15:41
ALT 13 U/L (0-35) 05/29/24 15:41
Alkaline Phosphatase 53 U/L (38-126) 05/29/24 15:41
Lipase 46 U/L (23-300) 05/29/24 15:41
Data Reviewed
-
CT Scan: Report Reviewed by me
Ultrasound: Report Reviewed by me
Lab Data: Labs Reviewed by me
Old Records: Reviewed
Impression/Plan
-
IMPRESSION:
58 y.o female with intractable abdominal pain and nausea here for ongoing work up. She is well appearing, non-toxic. Pain seems out of proportion to exam which was benign. Labs are all within normal limits. Prior U/S and CT unrevealing. Saw
Hay today and sent in for additional studies.
PLAN:
1. Abdominal pain
- admit to med/surg
- diet as tolerated
- IVF, pain control and antiemetics
- continue ppi bid
- MRI abd/pelvis with contrast
- GI consult
2. DM II -
- metformin 500 bid
- insulin sliding scale
3. HTN
- continue clonidine, amlodipine and lisinopril
4. Psych - Bipolar/anxiety
- continue lamictal, hydroxyzine and clonazepam
DVT PPX - lovenox sq
Code Status - Full Code
--- NOTE | 2024-05-29 19:35 | PHANOTE ---
med rec tech(05/29/24)-Doctor put Ozempic on hold, pending further instruction to resume on Mondays.
[2024-05-29 19:36] VITALS: BP 96/82
[2024-05-29 19:50] VITALS: BP 124/85
[2024-05-29 20:00] VITALS: BP 133/94
[2024-05-29 21:05] VITALS: BP 137/92; BMI 27.2
[2024-05-29 21:32] LABS: Glucose - Point of Care 94 mg/dl (70-99)
[2024-05-29] MEDS: CATAPRES 0.1 MG PO (22:24)
[2024-05-29] MEDS: ZESTRIL 20 MG PO (22:24)
[2024-05-29] MEDS: ATARAX 25 MG PO (22:25)
[2024-05-29] MEDS: GLUCOPHAGE 500 MG PO (22:25)
[2024-05-29] MEDS: LR 1000 IV (22:25)
[2024-05-29] MEDS: DESYREL 100 MG PO (22:25)
[2024-05-29] MEDS: PROTONIX 40 MG PO (22:25)
[2024-05-29] MEDS: NEURONTIN 1200 MG PO (22:25)
[2024-05-29 23:25] VITALS: BP 133/91
[2024-05-30] VITALS (7 sets, daily range): BP systolic 18–121; BP diastolic 58–80; BMI 27.2
--- NOTE | 2024-05-30 07:23 | W.PN.HOSP.TC ---
Today's Communication/Plan
-
diet as per GI
Glycemic Control
Blood Pressure Control
Assessment / Plan
Assessment / Plan
Physical Exam
General: Well Developed, Well Nourished, No Apparent Distress and Comfortable
HEENT: NormoCephalic, Anicteric, Moist mucous membranes and Atraumatic
Respiratory: Clear
Cardiac: S1/S2 and Regular Rhythm
GI: Soft, Non Distended, Normal Bowel Sounds, Flat and No Hepatosplenomegaly
Genito-urinary: No costovertebral tender
Musculoskeletal: No Clubbing, No Cyanosis and No Edema
Skin: Warm
Neuro: AO x 3
Hematologic/Lymphatic: No Lymphadenopathy
Psych: Calm
58 y.o female with intractable abdominal pain and nausea here for ongoing work up. She is well appearing, non-toxic. Pain seems out of proportion to exam which was benign. Labs are all within normal limits. Prior U/S and CT unrevealing. Saw
Hay who sent pt in for additional studies.
PLAN:
1. Abdominal pain
- NPO for MRI EGD diet since resumed
- IVF, pain control and antiemetics
- continue ppi bid
- GI consult appreciated EGD performed 05/30/24 noted gastritis biopsied, normal esophagus biopsied, normal GE junction, normal duodenum biopsied
Abd/Pelvis MRI appreciated
-4.6 cm predominantly calcified subserosal fibroid extending along the right aspect of the uterus. There are 2 additional subcentimeter, subserosal fibroids.
-Colonic diverticulosis. Mild colonic stool burden.
-Mild circumferential urinary bladder wall thickening which can be seen with cystitis. Urinalysis however is not suggestive UTI
2. DM II -
- metformin 500 bid
- insulin sliding scale
3. HTN
- continue clonidine, amlodipine and lisinopril
4. Psych - Bipolar/anxiety
- continue lamictal, hydroxyzine and clonazepam
DVT PPX - lovenox sq
Code Status - Full Code
I spent a total of 35 minutes with the patient or on the floor. More than 50% of this time involved counseling and coordination of care.
Anticipated Discharge: Within 24 hours
Subjective/Interval History
-
Date of Service: May 30, 2024
NPO MRI recently taken, awaiting EGD. Pain resolved at this time. Patient eager to eat. Sister Zonia present during evaluation.
Objective Data
-
Vital Signs:
Vital Signs
Temp Pulse Resp BP Pulse Ox
98.1 F 83 16 133/91 98
05/29/24 23:25 05/29/24 23:25 05/29/24 23:25 05/29/24 23:25 05/29/24 23:25
I&O
05/29/24 05/30/24 05/31/24
06:59 06:59 06:59
Intake Total 480 / 480
Balance 480 / 480
--- NOTE | 2024-05-30 07:26 | CON.GI ---
Addendum entered and electronically signed by Dorcas Meeks MD 05/30/24 12:11:
I saw and examined the patient.
The FOOD BAGGING MACHINE OPERATOR's note was reviewed and I agree with the note.
58-year-old female with past medical history of hypertension, GERD, obstructive sleep apnea on CPAP, bipolar disorder, migraines, prediabetes, portal vein thrombosis, obesity was sent to the emergency room after having a prior emergency room visit a
couple weeks ago with ongoing symptoms of weight loss, epigastric pain, nausea and early satiety. The symptoms been ongoing for greater than a month. Patient had inability to tolerate oral intake. Epigastric pain/periumbilical pain that she
describes as both sharp and dull, pain improved with heating pad and time. Weight loss of 70 to 80 pound over the past year. Dysphagia to solid food. CT findings of distal esophageal thickening. Program Attendant colored stools.
Impression:
Epigastric pain
Weight loss
Abnormal CT with thickening of the GE junction
Early satiety
Headaches
Dehydration
Inability to tolerate oral intake
plan
EGD today
follow up MRI abdomen
Original Note:
Consultation
-
Date/Time Consultation Requested: 05/30/24104
Date/Time Consultation Performed: 05/30/24729
Requesting Provider: Dr Esteves
Performing Provider: Dr. Meeks/RENAE Calderon
Reason for Consultation: intractable abd pain
Medical History
Chief Complaint / HPI
Chief Complaint: abd pain
History of Present Illness:
58-year-old female with past medical history of hypertension, GERD, obstructive sleep apnea on CPAP, bipolar disorder, migraines, prediabetes, portal vein thrombosis, obesity was sent to the emergency room after having a prior emergency room visit a
couple weeks ago with ongoing symptoms of weight loss, epigastric pain, nausea and early satiety. The symptoms been ongoing for greater than a month. Patient had inability to tolerate oral intake. Epigastric pain/periumbilical pain that she
describes as both sharp and dull, pain improved with heating pad and time. Worse with twisting turning and food. She states that she has lost approximately 70-80 pounds over the past year. She was previously on Ozempic but has been on this for a
couple years. She had the majority of her weight loss over this past year. Her pain and weight loss were more recently and not associated with the time surrounding her Ozempic use. She has been off of this for approximately 1 to 2 weeks. She
states that she has had parimutuel ticket cashier colored stools recently. She denies any fevers, chills, vomiting, melena, hematochezia. The patient does have intermittent solid food dysphagia. She does have early satiety and nausea. She denies any
bilirubinuria. She does have history of migraines with difficulty walking at times. She states she is due for colonoscopy as it has been 10 years since her last one. She denies any abnormalities on that colonoscopy. She states her sister has the
date of her next colonoscopy when it is due. She has been on omeprazole twice a day without any relief. She was seen in the emergency room a couple weeks ago with unremarkable CT with IV contrast, ultrasound that was negative and labs that were
unremarkable except for distal esophageal thickening. The patient had a negative CT of the head so far. She is pending MRI of the abdomen and pelvis. She continues on IV fluids at this time.
Past Medical History
Past Medical History: GERD, HTN, Hypercholesterolemia, NIDDM and Other (Migraines, obstructive sleep apnea on CPAP, bipolar disorder, Hepatitis C status posttreatment, portal vein thrombosis, Lumbar degenerative disc disease, COPD,Obesity)
Past Surgical History: Other (Basal cell excision, sebaceous cyst removal, inguinal hernia repair, knee replacement)
Social History
Tobacco: Former Smoker
Alcohol: None
Drug: None
Personal: Single
Living: Alone
Family History
Family History: Other (Family history of colon polyps, no family history gastrointestinal malignancies)
Allergies / Home Medications
Allergy/AdvReac Type Severity Reaction Status Date / Time
lurasidone [From Latuda] Allergy Mild 'acathesia' Verified 05/29/24 15:23
bupropion [From Wellbutrin] Allergy Unknown Verified 05/29/24 15:23
cats,hayfever Allergy sneezing,itchy Uncoded 05/29/24 15:23
watery eyes
steriods Allergy anxiety Uncoded 05/29/24 15:23
�Medication �Instructions �Recorded
lisinopril 20 mg tablet 20 mg PO BID Blood pressure 04/14/17
medroxyprogesterone 2.5 mg tablet 2.5 mg PO DAILY Hormonal agent 04/14/17
clonidine HCl 0.1 mg tablet 0.1 mg PO BID Blood pressure 11/26/20
lamotrigine 200 mg tablet 200 mg PO DAILY mental health 11/26/20
(Lamictal)
metformin 500 mg tablet 500 mg PO BID Diabetes 11/26/20
albuterol sulfate 90 mcg/actuation 1 puff inhalation R Q4HPRN PRN sob 05/29/24
aerosol inhaler
amlodipine 5 mg tablet 5 mg PO DAILY 05/29/24
atogepant 60 mg tablet (Qulipta) 60 mg PO HS 05/29/24
azelastine 137 mcg (0.1 %) nasal 2 spray intranasal DAILY 05/29/24
spray
clonazepam 1 mg tablet 1 mg PO DAILYPRN PRN anxiety 05/29/24
estradiol 0.5 mg tablet 0.5 mg PO DAILY 05/29/24
fluticasone propionate 50 1 spray intranasal DAILY 05/29/24
mcg/actuation nasal
spray,suspension
gabapentin 600 mg tablet 1,200 mg PO HS 05/29/24
gabapentin 600 mg tablet 600 mg PO DAILY 05/29/24
hydroxyzine pamoate 25 mg capsule 25 mg PO BID 05/29/24
levocetirizine 5 mg tablet 5 mg PO DAILY 05/29/24
loratadine 10 mg tablet (Claritin) 10 mg PO DAILY 05/29/24
lumateperone 42 mg capsule 42 mg PO DAILY 05/29/24
(Caplyta)
ondansetron HCl 8 mg tablet 8 mg PO DAILYPRN PRN nausea 05/29/24
pantoprazole 40 mg tablet,delayed 40 mg PO BID 05/29/24
release
tizanidine 4 mg tablet 4 mg PO TIDPRN PRN muscle spasms 05/29/24
trazodone 100 mg tablet 100 mg PO HS 05/29/24
Review of Systems
-
All other systems: A 12 pt ROS was Negative except as stated above in HPI
Vital Signs
Temp Pulse Resp BP Pulse Ox
98.1 F 83 16 133/91 98
05/29/24 23:25 05/29/24 23:25 05/29/24 23:25 05/29/24 23:25 05/29/24 23:25
Physical Exam
Exam
General: No Apparent Distress
HEENT: Anicteric
Respiratory: Clear
Cardiac: Regular Rhythm
GI: Soft, Non Distended, Normal Bowel Sounds and Tender (Epigastric)
Skin: Warm and Dry
Neuro: AO x 3
Results
WBC 6.0 10^3/uL (4.8-10.8) 05/29/24 15:41
Hgb 13.3 g/dL (12.0-16.0) 05/29/24 15:41
Hct 40.2 % (37.0-47.0) 05/29/24 15:41
MCV 89.3 fL (81.0-99.0) 05/29/24 15:41
Plt Count 316 10^3/uL (130-400) 05/29/24 15:41
Absolute Neuts (auto) 4.0 10^3/uL (1.4-6.5) 05/29/24 15:41
Sodium 138 mmol/L (135-145) 05/29/24 15:41
Potassium 4.4 mmol/L (3.5-5.1) 05/29/24 15:41
Chloride 96 mmol/L (98-107) L 05/29/24 15:41
Carbon Dioxide 26 mmol/L (22-30) 05/29/24 15:41
BUN 8 mg/dl (7-17) 05/29/24 15:41
Creatinine 0.8 mg/dL (0.6-1.0) 05/29/24 15:41
Calcium 9.7 mg/dl (8.4-10.2) 05/29/24 15:41
Total Bilirubin 0.5 mg/dl (0.2-1.3) 05/29/24 15:41
AST 22 U/L (14-36) 05/29/24 15:41
ALT 13 U/L (0-35) 05/29/24 15:41
Alkaline Phosphatase 53 U/L (38-126) 05/29/24 15:41
Lipase 46 U/L (23-300) 05/29/24 15:41
Diagnostic Image Results:
CT head 05/29/2024:
IMPRESSION:
No acute intracranial abnormality noted.
CT abdomen and pelvis with IV contrast 05/08/2024:
IMPRESSION: Suggestion of mild to moderate circumferential thickening of the wall the distal esophagus. See above discussion.
Contracted gallbladder with no evidence for calcified gallstones. No evidence for biliary ductal dilation.
Large calcified fibroid in the right side of the uterus, transverse dimension of 4.2 cm cyst. Small 1 cm enhancing noncalcified fibroid superiorly within the uterus.
Colonic diverticula with no CT evidence for diverticulitis.
Bony degenerative changes as described.
Ultrasound abdomen 05/08/2024:
1. Unremarkable abdominal ultrasound, as detailed above.
Prior GI Procedures:
EGD: Never
Colonoscopy: Approximately 10 years ago. Per patient normal
Assessment / Plan
-
58-year-old female with past medical history of hypertension, GERD, obstructive sleep apnea on CPAP, bipolar disorder, migraines, prediabetes, portal vein thrombosis, obesity was sent to the emergency room after having a prior emergency room visit a
couple weeks ago with ongoing symptoms of weight loss, epigastric pain, nausea and early satiety. The symptoms been ongoing for greater than a month. Patient had inability to tolerate oral intake. Epigastric pain/periumbilical pain that she
describes as both sharp and dull, pain improved with heating pad and time. Weight loss of 70 to 80 pound over the past year. Dysphagia to solid food. CT findings of distal esophageal thickening. Program Attendant colored stools.
Impression:
Epigastric pain
Weight loss
Abnormal CT with thickening of the GE junction
Early satiety
Headaches
Dehydration
Inability to tolerate oral intake
Plan:
-MRI of the abdomen today
-Internal medicine also ordered MRI pelvis
-EGD planned for tomorrow
-Continue pantoprazole IV twice daily
-Continue IV fluids as patient n.p.o. today
-Okay to give clear liquids after MRI this evening, then n.p.o. after midnight for EGD in a.m.
-Further recommendations to be forthcoming
-
-
Thank you for consultation and allowing me to participate in the patient's care. Please call the distribution field engineer GI physician during the after hours with any questions or concerns.
[2024-05-30 08:16] LABS: Glucose - Point of Care 88 mg/dl (70-99)
[2024-05-30] MEDS: GLUCOPHAGE PO ×2 (08:29→08:35)
[2024-05-30] MEDS: CLARITIN 10 MG PO (08:29)
[2024-05-30] MEDS: NEURONTIN 600 MG PO (08:29)
[2024-05-30] MEDS: ATARAX 25 MG PO ×2 (08:29→21:42)
[2024-05-30] MEDS: PROTONIX 40 MG PO ×2 (08:30→21:45)
[2024-05-30] MEDS: NORVASC 5 MG PO (08:30)
[2024-05-30] MEDS: LAMICTAL 200 MG PO (08:30)
[2024-05-30] MEDS: PROVERA 2.5 MG PO (08:30)
[2024-05-30] MEDS: ZESTRIL 20 MG PO ×2 (08:30→21:43)
[2024-05-30] MEDS: CATAPRES 0.1 MG PO ×2 (08:30→21:43)
[2024-05-30 13:25] LABS: Glucose - Point of Care 89 mg/dl (70-99)
[2024-05-30] MEDS: ESTRACE PO (13:25)
[2024-05-30] MEDS: LR IV (14:19)
[2024-05-30 16:53] LABS: Glucose - Point of Care 120 mg/dl (70-99)
[2024-05-30] MEDS: GLUCOPHAGE 500 MG PO (17:55)
[2024-05-30] MEDS: LOVENOX 40 MG SC (17:55)
[2024-05-30] MEDS: TYLENOL 650 MG PO (21:40)
[2024-05-30] MEDS: NEURONTIN 1200 MG PO (21:41)
[2024-05-30] MEDS: DESYREL 100 MG PO (21:46)
[2024-05-30 21:59] LABS: Glucose - Point of Care 100 mg/dl (70-99)
[2024-05-30] MEDS: NON-FORMULARY ITEM 42 MG PO (22:20)
[2024-05-31] MEDS: TORADOL 15 MG IV (00:14)
[2024-05-31 05:46] LABS: Glucose - Point of Care 91 mg/dl (70-99)
[2024-05-31 06:37] LABS: Hematocrit 33.4 % (37.0-47.0); Hemoglobin 11.2 g/dL (12.0-16.0); Mean Corp Hgb Conc. 33.5 g/dL (33.0-37.0); Mean Corpuscular Hgb 29.9 pg (27.0-31.0); Mean Corpuscular Volume 89.3 fL (81.0-99.0); Platelet Count 250 10^3/uL (130-400); Red Blood Cell Count 3.74 10^6/uL (4.20-5.40); Red Cell Dist. Width 11.9 % (11.5-14.5); White Blood Cell Count 5.1 10^3/uL (4.8-10.8)
[2024-05-31 06:50] LABS: ALT (SGPT) 11 U/L (0-35); AST (SGOT) 16 U/L (14-36); Albumin 3.1 g/dl (3.5-5.0); Alkaline Phosphatase 35 U/L (38-126); Blood Urea Nitrogen 15 mg/dl (7-17); Calcium 8.6 mg/dl (8.4-10.2); Carbon Dioxide 21 mmol/L (22-30); Chloride 108 mmol/L (98-107); Estimated Creatinine Clearance 81 ml/min; Glucose 83 mg/dl (70-99); Magnesium 1.7 mg/dl (1.6-2.3); Phosphorus 4.1 mg/dl (2.5-4.5); Sodium 141 mmol/L (135-145); Total Bilirubin 0.2 mg/dl (0.2-1.3); Total Protein 5.2 g/dl (6.3-8.2); eGFR > 60.00
--- NOTE | 2024-05-31 07:21 | W.PN.HOSP.TC ---
Today's Communication/Plan
-
discharge
Assessment / Plan
Assessment / Plan
Physical Exam
General: Well Developed, Well Nourished, No Apparent Distress and Comfortable
HEENT: NormoCephalic, Anicteric, Moist mucous membranes and Atraumatic
Respiratory: Clear
Cardiac: S1/S2 and Regular Rhythm
GI: Soft, Non Distended, Normal Bowel Sounds, Flat and No Hepatosplenomegaly
Genito-urinary: No costovertebral tender
Musculoskeletal: No Clubbing, No Cyanosis and No Edema
Skin: Warm
Neuro: AO x 3
Psych: Calm
58 y.o female with intractable abdominal pain and nausea here for ongoing work up. She is well appearing, non-toxic. Pain seems out of proportion to exam which was benign. Labs are all within normal limits. Prior U/S and CT unrevealing. Saw
Hay who sent pt in for additional studies.
PLAN:
1. Abdominal pain resolved
- NPO for MRI EGD diet since resumed
- IVF, pain control and antiemetics
- continue ppi bid
- GI consult appreciated EGD performed 05/30/24 noted gastritis biopsied, normal esophagus biopsied, normal GE junction, normal duodenum biopsied
-diet advanced to low residue, protonix BID, miralax BIDprn constipation, avoid NSAIDs, as per GI
-outpt GI follow up.
Abd/Pelvis MRI appreciated
-4.6 cm predominantly calcified subserosal fibroid extending along the right aspect of the uterus. There are 2 additional subcentimeter, subserosal fibroids.
-Colonic diverticulosis. Mild colonic stool burden.
-Mild circumferential urinary bladder wall thickening which can be seen with cystitis. Urinalysis however is not suggestive UTI
Uterine fibroids known to patient follows with car chaser regularly
2. DM II -
- metformin 500 bid
- insulin sliding scale
3. HTN
- continue clonidine, amlodipine and lisinopril
4. Psych - Bipolar/anxiety
- continue lamictal, hydroxyzine and clonazepam
DVT PPX - lovenox sq
Code Status - Full Code
Medically Stable for discharge home with outpatient follow up recommendations.
discussed with patient and patient's sister Zonia
Total Time Preparing Discharge ___40____ minutes including examination of the patient, summary of the hospital stay, instructions for continuing care to all relevant caregivers; and preparation of discharge records, prescriptions, and referral
forms if necessary.
Anticipated Discharge: Today
Subjective/Interval History
-
Date of Service: May 31, 2024
No acute distress siting up comfortably in bed. Tolerated diet. Overall reports feeling well at this time. Eager to go home. Sister Zonia present during evaluation.
Objective Data
-
Labs:
Laboratory Results
05/31/24
05:55
WBC 5.1
Hgb 11.2 L
Hct 33.4 L
Plt Count 250 D
Sodium 141
Potassium 4.0
Chloride 108 H
Carbon Dioxide 21 L
BUN 15
Creatinine 0.7
Glucose 83
Calcium 8.6
Total Bilirubin 0.2
AST 16
ALT 11
Alkaline Phosphatase 35 L
Vital Signs:
Vital Signs
Temp Pulse Resp BP Pulse Ox
98.3 F 84 16 96/58 96
05/30/24 23:20 05/30/24 23:20 05/30/24 23:20 05/30/24 23:20 05/30/24 23:20
I&O
05/30/24 05/31/24 06/01/24
06:59 06:59 06:59
Intake Total 480 / 480 1440 / 1440
Balance 480 / 480 1440 / 1440
[2024-05-31 07:49] VITALS: BP 121/77
--- NOTE | 2024-05-31 08:31 | W.PN.GI.CBS2 ---
Today's Communication / Plan
-
Unremarkable EGD along MRI/MRCP except for incidental fibroids. Advance diet as tolerated to low-fiber, low-residue diet. Empiric PPI 40 mg BiD and miralax BiD if constipation further contributing given reported constipation and stool burden seen on
MRI. Needs close outpatient f/u with her primary Human Resources File Clerk, Dr. Guido. Given improving symptoms, will sign-off. Rest of care as below.
Assessment / Plan
-
58-year-old female with past medical history of hypertension, GERD, obstructive sleep apnea on CPAP, bipolar disorder, migraines, prediabetes, portal vein thrombosis, obesity was sent to the emergency room after having a prior emergency room visit a
couple weeks ago with ongoing symptoms of weight loss, epigastric pain, nausea and early satiety. The symptoms been ongoing for greater than a month. Patient had inability to tolerate oral intake. Epigastric pain/periumbilical pain that she
describes as both sharp and dull, pain improved with heating pad and time. Weight loss of 70 to 80 pound over the past year. Dysphagia to solid food. CT findings of distal esophageal thickening. Ice Guard Inspector colored stools.
Impression:
Epigastric pain
Weight loss
Abnormal CT with thickening of the GE junction
Early satiety
Headaches
Dehydration
Inability to tolerate oral intake
S/p EGD 05/30 which was grossly unrevealing except for mild inflammation in stomach, multiple biopsies obtained. MRI/MRCP 05/30/24 only notable for 4.6 cm predominantly calcified subserosal fibroid along the R aspect of uterus and 2 additional
subcentimeter, subserosal fibroids. Colonic diverticulosis without diverticulitis, only noting mild colonic stool burden and mild circumferential bladder wall thickening. CTH also performed and was negative.
Recommendations:
- Advance diet as tolerated given improving pain
- Empiric PPI 40 mg BiD
- Start bowel regimen if underlying constipation further contributing to abdominal pain- Miralax 17 gm BiD
- Await pathology results from EGD
- Avoidance of all NSAIDs
- Needs ongoing outpatient f/u with her primary Human Resources File Clerk, Dr. Guido. Discussed with him this AM
- Recommend OBGYn f/u regarding fibroids seen on MRI/MRCP,
- Anti-emetics and pain control PRN. Avoid opioids and NSAIDs
- Rest of care per primary team
Patient seen and examined. Discussed with internal medicine team this AM. GI team will sign-off, please call back with any questions or concerns.
Subjective
Subjective
Date of Service: May 31, 2024
- S/p EGD 05/30 which was grossly unrevealing except for mild inflammation in stomach, multiple biopsies obtained
- Otherwise, no acute events overnight
Resting comfortably this AM, reports feeling better. Discussed findings of EGD and other recent work-up. Otherwise, denies any abdominal pain or nausea/vomiting overnight. Passing flatus, last BM two days ago. Otherwise, no fevers, chills or other
constitutional symptoms.
Objective
Data Reviewed
Laboratory Data:
Laboratory Results
05/31/24 05:55
05/31/24 05:55
Laboratory Results
Phosphorus 4.1 mg/dl (2.5-4.5) 05/31/24 05:55
Magnesium 1.7 mg/dl (1.6-2.3) 05/31/24 05:55
Total Bilirubin 0.2 mg/dl (0.2-1.3) 05/31/24 05:55
AST 16 U/L (14-36) 05/31/24 05:55
ALT 11 U/L (0-35) 05/31/24 05:55
Alkaline Phosphatase 35 U/L (38-126) L 05/31/24 05:55
Lipase 46 U/L (23-300) 05/29/24 15:41
Vital Signs and I&O:
Vital Signs
Temp Pulse Resp BP Pulse Ox
98.5 F 81 16 121/77 96
05/31/24 07:49 05/31/24 07:49 05/31/24 07:49 05/31/24 07:49 05/31/24 07:49
I&O
05/30/24 05/31/24 06/01/24
06:59 06:59 06:59
Intake Total 480 / 480 1440 / 1440
Balance 480 / 480 1440 / 1440
Physical Exam
Physical Exam
HEENT: Anicteric and Moist mucous membranes
Cardiology: Normal Sinus Rhythm
Pulmonary: Clear and Other (Normal WOB on room air)
GI: Soft, Non Distended and Non Tender
Extremities: No Edema
Neuro: Non Focal
[2024-05-31] MEDS: PROTONIX 40 MG PO (09:28)
[2024-05-31] MEDS: NEURONTIN 600 MG PO (09:28)
[2024-05-31] MEDS: LAMICTAL 200 MG PO (09:28)
[2024-05-31] MEDS: CLARITIN 10 MG PO (09:28)
[2024-05-31] MEDS: ESTRACE 0.5 MG PO (09:29)
[2024-05-31] MEDS: ATARAX 25 MG PO (09:29)
[2024-05-31] MEDS: ZESTRIL 20 MG PO (09:29)
[2024-05-31] MEDS: CATAPRES 0.1 MG PO (09:29)
[2024-05-31] MEDS: NORVASC 5 MG PO (09:29)
[2024-05-31] MEDS: GLUCOPHAGE 500 MG PO (09:35)
[2024-05-31] MEDS: PROVERA 2.5 MG PO (09:37)
[2024-05-31 12:39] LABS: Glucose - Point of Care 99 mg/dl (70-99)
--- NOTE | 2024-05-31 14:26 | W.DCSUMMARY ---
Discharge Summary
Discharge Data
Date of Admission: 05/29/24
Date of Discharge: 05/31/24
-
Pending Results: Yes
Additional Pending Results:
biopsy results to be followed with GI
Discharge Plan
-
Patient Disposition: Home (Routine Discharge)
Discharge Diagnosis/Procedures: Abdomen pain gastritis unclear etiology
Uterine Fibroids
Diabetes
Hypertension
Bipolar/Anxiety
Condition: Fair
Diet: Low Residue and Diabetic, Carb Controlled
Activity: As tolerated
Driving Restrictions: As prior to admission
Bathing Restrictions: None
Activity Restrictions/Additional Instructions:
Please follow up with your primary care provider in 1 week of discharge and GI in 2-4 weeks of discharge.
Miralax prescribed for constipation, hold if diarrhea or resolution constipation.
Avoid further NSAID use (such as ibuprofen, advil, aspirine, meloxicam, etc) as usage may lead to return of symptoms or further exacerbate your condition. Follow up with GI or other healthcare provider before considering to resume use.
Please take medications as prescribed/recommended and follow up with primary care provider and/or other healthcare provider involved in your care for refills and/or further adjustment to your medication regimen as necessary.
Referrals:
Kenneth Guido MD [Active] - in two to four weeks
Shailesh Jean MD [Primary Care Provider] - in one week
Prescriptions:
New
polyethylene glycol 3350 [HealthyLax] 17 gram Powder In Packet
17 g PO BID Qty: 30 0RF
Rx Instructions:
hold if diarrhea or constipation resolved
Continued
medroxyprogesterone 2.5 MG tablet
2.5 mg PO DAILY
lisinopril 20 MG tablet
20 mg PO BID
metformin 500 MG tablet
500 mg PO BID
clonidine HCl 0.1 MG tablet
0.1 mg PO BID
lamotrigine [Lamictal] 200 MG tablet
200 mg PO DAILY
gabapentin 600 mg Tablet
600 mg PO DAILY
tizanidine 4 mg Tablet
4 mg PO TIDPRN PRN (Reason: muscle spasms)
ondansetron HCl 8 mg Tablet
8 mg PO DAILYPRN PRN (Reason: nausea)
amlodipine 5 mg Tablet
5 mg PO DAILY
trazodone 100 mg Tablet
100 mg PO HS
pantoprazole 40 mg Tablet,Delayed Release (Dr/Ec)
40 mg PO BID
estradiol 0.5 mg Tablet
0.5 mg PO DAILY
azelastine 137 mcg (0.1 %) Preston,Non-Aerosol
2 spray INTRANASAL DAILY
albuterol sulfate 90 mcg/actuation Hfa Aerosol Inhaler
1 puff INHALATION R Q4HPRN PRN (Reason: sob)
fluticasone propionate 50 mcg/actuation Preston,Suspension
1 spray INTRANASAL DAILY
hydroxyzine pamoate 25 mg Capsule
25 mg PO BID
levocetirizine 5 mg Tablet
5 mg PO DAILY
Caplyta 42 mg Capsule
42 mg PO HS
Qulipta 60 mg Tablet
60 mg PO HS
clonazepam 1 MG tablet
1 mg PO DAILYPRN PRN (Reason: anxiety)
gabapentin 600 mg Tablet
1,200 mg PO HS
loratadine [Claritin] 10 mg Tablet
10 mg PO DAILY
Discharge Orders:
Discharge Patient (As Directed); Ordered 05/31/24
Ordered By: Dionisio López
Discharge Date and Time
Print Language: SAO TOMEAN
[2024-05-31 14:36] VITALS: BP 114/74
[2024-05-31] MEDS: AFLURIA (36 mos+) 2024-2025 FORMULA 0.5 ML IM (15:01)
== END 2024-05-31 16:51 | disposition home or self-care (01) ==
LOC: 3 WEST ACU 20:09
PROVIDERS: Nurse Practitioner; ADMITTING PHYSICIAN Internal Medicine; ATTENDING PHYSICIAN Internal Medicine; CONSULT PHYSICIAN Internal Medicine Gastroenterology; EMERGENCY PHYSICIAN Emergency Medicine; PRIMARYCARE PHYSICIAN Family Medicine
DX: K29.70 Gastritis, unspecified, without bleeding (principal); R10.9 Unspecified abdominal pain; F17.290 Nicotine dependence, other tobacco product, uncomplicated; E11.9 Type 2 diabetes mellitus without complications; F31.9 Bipolar disorder, unspecified; I10 Essential (primary) hypertension; K21.00 Gastro-esophageal reflux disease with esophagitis, without bleeding; R41.82 Altered mental status, unspecified; G47.33 Obstructive sleep apnea (adult) (pediatric); G43.909 Migraine, unspecified, not intractable, without status migrainosus; F41.9 Anxiety disorder, unspecified; R68.81 Early satiety; R63.4 Abnormal weight loss; K57.30 Diverticulosis of large intestine without perforation or abscess without bleeding; D25.2 Subserosal leiomyoma of uterus; J98.11 Atelectasis; R13.10 Dysphagia, unspecified; E86.0 Dehydration; J44.9 Chronic obstructive pulmonary disease, unspecified; E78.00 Pure hypercholesterolemia, unspecified; Z88.8 Allergy status to other drugs, medicaments and biological substances; Z79.51 Long term (current) use of inhaled steroids; Z79.84 Long term (current) use of oral hypoglycemic drugs; Z83.719 Family history of colon polyps, unspecified; Z79.85 Long-term (current) use of injectable non-insulin antidiabetic drugs; Z85.828 Personal history of other malignant neoplasm of skin; Z68.27 Body mass index [BMI] 27.0-27.9, adult; Z23 Encounter for immunization
CPT/HCPCS: 43239; 88305; 70450; 72197; 74183; 80053; 81003; 82962; 83605; 83690; 83735; 84100; 85025; 85027; 87070; 88342; 90686; 96374; 99284; A9575; G0008; G0378

== ENCOUNTER → 2024-06-25 07:48 | Outpatient (REF) | payer MEDICARE, OTHER, SELFPAY | LOC: RAD 07:48 | PROVIDERS: ATTENDING PHYSICIAN Family Medicine | DX: R10.13 Epigastric pain (principal) | CPT/HCPCS: 78227; A9537; J2805 ==

== ENCOUNTER 2024-07-05 18:13 | Emergency (ER) | payer MEDICARE, OTHER, SELFPAY ==
[2024-07-05 18:16] VITALS: BP 139/99
[2024-07-05 18:27] VITALS: BMI 24.8
--- NOTE | 2024-07-05 18:40 | EDRN ---
Pt says she wanted to try the vodka for tomorrow's green party to make sure she doesn't have a bad reaction to it. Pt says she only drinks once or twice a year. Pt repeatedly asking how she go to the hospital. Pt intermittently tearful. Pt says she
has no one to pick her up - no family, friends, neighbors. Plan of care explained to pt multiples time but she is unable to retain information.
--- NOTE | 2024-07-05 18:50 | EDRN ---
Shortly after this RN left pt room with her on the bedpan, pt came out to the desk to ask when she is going home. Pt removed her c-collar, monitoring equipment, bedpan and climbed out of the stretcher that had 2 rails up. Pt now says she has a
sister that can pick her up. Pt escorted back to room #1 and complained her knee hurts but pt denied this being knew 'I feel like I usually do.' Pt walked into the bathroom to void on toilet. Charge nurse informed of need for 1:1 for pt safety.
Pt placed in Crisis 1 for safety to be watched by security. Pt given new warm blankets.
[2024-07-05 20:43] VITALS: BP 147/111
--- NOTE | 2024-07-05 21:50 | EDRN ---
Pt screaming, could be heard in main ED. 'What the fuck do I have to do to get out of here?' 'This is bullshit!' Pt was asked multiple times to not curse or yell. This RN spoke with Dr Soto who said pt needs a ride home to leave or she
has to continue waiting to be seen. This was explained to pt. Pt became apologetic for her behavior, explained she tried the vodka because she was concerned about drinking tomorrow at the green party and wanted to make sure she would not vomit if she
drinks. Pt adds she does not drink normally and had two drinks. Pt says there is no one to pick her up and said she would have to Uber. Explained to pt she cannot go home via [employer] until evaluated by ED provider and cleared to do so. Reminded pt
she complained of leg/ankle pain earlier and she said she feels fine now, just wants to go home. Pt understands the delay in being seen by provider. Pt has ice chips and ice water at bedside. Pt laid back down and thanked this RN for everything.
[2024-07-05 23:16] VITALS: BP 111/73
--- NOTE | 2024-07-05 23:38 | ED.GENMED ---
History of Present Illness
General
Chief Complaint: Alcohol Problem
Time Seen by Provider: 07/05/24 23:38
History of Present Illness
History of Present Illness:
TIME OF INITIAL ENCOUNTER: 11:45 PM
HPI: The patient came in by ambulance from [facility] as she activated her medical alert. She is not quite sure how this happened as she does not recall doing so. Reportedly, EMS placed her in a cervical spine collar upon arrival however the
patient refused to keep this on. I am evaluating her several hours after she initially arrived and currently she is acting appropriately. She has no specific complaints. She tells me that she wanted to try vodka today to see how she would respond
to drinking vodka tomorrow at a green party. She does not normally drink alcohol. She says that she drinks alcohol maybe once per year.
EXAM:
GENERAL: Well appearing in no distress
HEENT: Moist oral mucosa
CARDIOVASCULAR: No murmurs, normal heart rate, regular rhythm, No chest wall tenderness
PULMONARY: No respiratory distress, breath sounds are clear and equal
ABDOMEN: Soft with no peritoneal signs, no tenderness
NEUROLOGIC: Excellent strength all extremities, no coordination deficits
PSYCHIATRIC: Appropriate mental status, normal insight and judgement, she cannot recall the recent events of this evening however currently otherwise has appropriate mental status and does not appear intoxicated at this time
EXTREMITIES: Nontender, no edema, moves all extremities equally
SKIN: No rash, no lesions
NUMBER AND COMPLEXITY OF PROBLEMS ADDRESSED AT THE ENCOUNTER
� Chronic conditions affecting care: Patient has a history of bipolar, alcohol abuse, prediabetes, GERD, hypertension
� Acute Exacerbation and/or Progression of Chronic Illness: This is an acute problem
� Differential Diagnosis includes: Alcohol intoxication, exacerbation of bipolar disorder
AMOUNT AND/OR COMPLEXITY OF DATA TO BE REVIEWED AND ANALYZED
� I performed an independent evaluation of and my interpretation is:
EKG:
CT:
X-rays:
Laboratory Studies:
Other:
� Review of other/old records: The patient was seen here just over a month ago with abdominal pain�at that time ultrasound and CT imaging unremarkable and she also had an MRI of the abdomen pelvis..
� Clinical information was obtained by an independent historian:
� Prescriptions/Medications Considered but not given:
� Further testing considered but not performed: No indication for lab work at this time
RISK OF COMPLICATIONS AND/OR MORBIDITY OR MORTALITY OF PATIENT MANAGEMENT
� Social determinants of health affecting care: Resides at [facility]
� Discussion with other providers:
� Escalation of care including admission/observation vs risk of discharge considered: The patient has been observed here for several hours in the emergency department. I evaluated her at 11:45 PM and she currently does not
appear to be intoxicated. She reportedly was intoxicated upon arrival.
ANY OTHER UPDATES:
Prior to discharge, she does not appear to be intoxicated. She is answering questions appropriately.
Past History
Past History
ED Past Medical History: GERD, HTN, NIDDM and Psychiatric (Bipolar disease)
Social History
Tobacco: Vaping
Alcohol: None
Drug: None
Phy Exam
Physical Exam
Physical Exam:
See HPI
Scores
Withdrawal Assessment of Alcohol
Withdrawal Assessment Completed?: Not applicable
Course
Vital Signs
Initial and Last Documented VS:
Initial Vital Signs
Temp Pulse Resp BP Pulse Ox
36.9 C 106 16 139/99 97
07/05/24 18:16 07/05/24 18:16 07/05/24 18:16 07/05/24 18:16 07/05/24 18:16
Last Documented Vital Signs
Temp Pulse Resp BP Pulse Ox
36.9 C 92 18 111/73 97
07/05/24 18:16 07/05/24 23:16 07/05/24 20:43 07/05/24 23:16 07/05/24 23:16
*Critical Care Note
Total Time (30-74mins, 75-104mins- exclusive of procedures): Not Applicable
ED Attending Note
-
Portions of this chart may have been created with voice recognition software.� Occasional wrong word or��sound alike� substitutions may have occurred due to the inherent limitations of voice recognition software.
Discharge Plan
Departure
Patient Disposition: Home (Routine Discharge)
Date of Disposition: 07/05/24
Time of Disposition: 23:48
Patient with high blood pressure during this ER visit?: Yes
Discharge Problem:
Alcohol use
Instructions: Alcohol Intoxication ED, BLOOD PRESSURE
Prescriptions:
No Action
medroxyprogesterone 2.5 MG tablet
2.5 mg PO DAILY
lisinopril 20 MG tablet
20 mg PO BID
metformin 500 MG tablet
500 mg PO BID
clonidine HCl 0.1 MG tablet
0.1 mg PO BID
lamotrigine [Lamictal] 200 MG tablet
200 mg PO DAILY
gabapentin 600 mg Tablet
600 mg PO TID
tizanidine 4 mg Tablet
4 mg PO PRN PRN (Reason: muscle spasms)
ondansetron HCl 8 mg Tablet
8 mg PO PRN PRN (Reason: nausea)
amlodipine 5 mg Tablet
5 mg PO DAILY
trazodone 100 mg Tablet
100 mg PO HS
pantoprazole 40 mg Tablet,Delayed Release (Dr/Ec)
40 mg PO BID
estradiol 0.5 mg Tablet
0.5 mg PO DAILY
azelastine 137 mcg (0.1 %) [place],Non-Aerosol
2 spray INTRANASAL DAILY
albuterol sulfate 90 mcg/actuation Hfa Aerosol Inhaler
1 puff INHALATION R Q4HPRN PRN (Reason: sob)
fluticasone propionate 50 mcg/actuation [place],Suspension
1 spray INTRANASAL DAILY
hydroxyzine pamoate 25 mg Capsule
25 mg PO BID
levocetirizine 5 mg Tablet
5 mg PO DAILY
Caplyta 42 mg Capsule
42 mg PO HS
Qulipta 60 mg Tablet
60 mg PO HS
clonazepam 1 MG tablet
1 mg PO DAILYPRN PRN (Reason: anxiety)
loratadine [Claritin] 10 mg Tablet
5 mg PO DAILY
Referrals:
Shailesh Jean MD [Family Provider] -
Interventions
Interventions:
*Risk Screen - Suicide Last Done: 07/05/24 18:16
*General Assessment Last Done: 07/05/24 18:16
*Neglect/Abuse Screening Last Done: 07/05/24 18:16
*ED COVID-19 Vaccine History Last Done: 07/05/24 18:16
*Nursing Disposition Last Done: 07/06/24 00:21
ED- Neurological Assessment Last Done: 07/05/24 18:38
Discharge Date and Time
Print Language: BERMUDIAN
--- NOTE | 2024-07-06 00:12 | EDRN ---
Pt was given d/c instructions. Pt asking for her purse which this RN did not see pt arrive with nor her headband. Pt initially would not allow this RN to call her sister to pick her up. After multiple discussions in which pt continued saying she
has no one to pick her up, what is she supposed to do, pt said it was alright to call her sister to pick her up. Pt provided number for her sister [phone] which is the same number listed in pt's contact information. Pt asked that her sister
not be told why she is here. This RN called phone number for pt's sister and left a voicemail letting sister know pt is alright and she is asking for her to pick her up and take her back to her apartment. Pt updated.
--- NOTE | 2024-07-06 00:18 | EDRN ---
Pt's cell phone is . Attempting to find rail bender to charge phone. Per charge nurse, Pj PEARCE, pt to be put in Results Pending area in waiting room to sleep until she gets a ride home. This was told to pt. MIKE Gomez taking pt's blankets and
pillow and pt to set her up in a recliner. Pt aware this RN will keep her cell phone and try to charge it and it will be returned to her - pt agreeable to this plan.
--- NOTE | 2024-07-06 00:23 | EDRN ---
Pt's sister called back and will come to pick pt up - pt informed. Pt's cell phone is charging.
== END 2024-07-06 00:50 | disposition home or self-care (01) ==
LOC: EMR 18:13
PROVIDERS: EMERGENCY PHYSICIAN Emergency Medicine; FAMILY PHYSICIAN Family Medicine
DX: F10.10 Alcohol abuse, uncomplicated (principal); F31.9 Bipolar disorder, unspecified; E11.9 Type 2 diabetes mellitus without complications; I10 Essential (primary) hypertension; K21.9 Gastro-esophageal reflux disease without esophagitis; F17.290 Nicotine dependence, other tobacco product, uncomplicated
CPT/HCPCS: 99282

== ENCOUNTER → 2025-02-10 11:28 | Outpatient (REF) | payer MEDICARE, OTHER, SELFPAY ==
[2025-02-10 19:09] LABS: Vitamin D, 25-OH*** 58.8 ng/mL (30-80)
[2025-02-10 19:27] LABS: Ferritin 17.0 ng/ml (11.1-264.0)
[2025-02-10 19:42] LABS: Vitamin B12 977 pg/ml (239-931)
== END ==
LOC: HWLAB 11:28
PROVIDERS: ATTENDING PHYSICIAN Registered Nurse Critical Care Medicine; FAMILY PHYSICIAN Family Medicine
DX: R74.8 Abnormal levels of other serum enzymes (principal); E67.3 Hypervitaminosis D; R79.0 Abnormal level of blood mineral; R41.82 Altered mental status, unspecified
CPT/HCPCS: 36415; 82306; 82607; 82728

== ENCOUNTER → 2025-04-23 10:03 | Outpatient (REF) | payer MEDICARE, OTHER, SELFPAY | LOC: HWRAD 10:03 | PROVIDERS: ATTENDING PHYSICIAN Internal Medicine Critical Care Medicine; FAMILY PHYSICIAN Family Medicine | DX: Z87.891 Personal history of nicotine dependence (principal); R91.8 Other nonspecific abnormal finding of lung field | CPT/HCPCS: 71271 ==

== ENCOUNTER → 2025-06-04 12:36 | Outpatient (REF) | payer MEDICARE, OTHER, SELFPAY | LOC: HWRCS 12:36 | PROVIDERS: ATTENDING PHYSICIAN Student in an Organized Health Care Education/Training Program; FAMILY PHYSICIAN Family Medicine | DX: I31.39 Other pericardial effusion (noninflammatory) (principal) | CPT/HCPCS: 93306 ==

== ENCOUNTER → 2025-07-27 10:47 | Outpatient (REF) | payer MEDICARE, OTHER, SELFPAY | LOC: PAVMRI 10:47 | PROVIDERS: ATTENDING PHYSICIAN Anesthesiology; FAMILY PHYSICIAN Family Medicine | DX: M54.14 Radiculopathy, thoracic region (principal) | CPT/HCPCS: 72146 ==